=== PATIENT | female | born 1990 | race Caucasian/White ===

== ENCOUNTER 2020-03-23 08:11 | Outpatient (CLI) | payer BC, SELFPAY ==
[2020-03-23 08:54] LABS: Hematocrit 43.8 % (37.0-47.0); Hemoglobin 15.1 g/dL (12.0-15.0); Mean Corpuscular HGB Conc 34.5 g/dl (32-36); Mean Corpuscular Hemoglobin 29.7 pg (26-34); Mean Corpuscular Volume 86.2 fl (80-100); Mean Platelet Volume 9.2 fl (7.4-10.4); Platelet Count Result 224 k/mm3 (150-375); Red Blood Count 5.08 M/mm3 (4.2-5.4); Red Cell Distribution Width 11.9 % (11.5-14.5); White Blood Count 7.2 K/mm3 (4.5-10.0)
[2020-03-23 09:17] LABS: Alanine Aminotransferase 37 U/L (4-35); Albumin Level 4.1 g/dL (3.5-5.1); Alkaline Phosphatase 60 U/L (38-126); Anion Gap 5 mmol/L (8-16); Aspartate Amino Transferase 34 U/L (14-36); Bilirubin,Total 0.4 mg/dL (0.2-1.3); Blood Urea Nitrogen 16 mg/dL (7-17); Carbon Dioxide 31 mmol/L (22-30); Chloride 102 mmol/L (98-107); Cholesterol 219 mg/dL (0-200); Estimated Glomerular Filt Rate > 60; Glucose 96 mg/dL (65-105); HDL Direct 46 mg/dL; Sodium 138 mmol/L (137-145); Triglycerides 181 mg/dL (<150)
[2020-03-23 09:28] LABS: LDL Cholesterol Direct 135 mg/dL
[2020-03-23 10:25] LABS: Free T4 Free Thyroxine 0.74 ng/mL (0.78-2.19)
== END 2020-03-23 08:12 | disposition home or self-care (01) ==
PROVIDERS: PCP Family Medicine; Visit Provider Physician Assistant
DX: Z00.00 Encounter for general adult medical examination without abnormal findings (principal); R53.83 Other fatigue
CPT/HCPCS: 36415; 80053; 80061; 84439; 84443; 85027

== ENCOUNTER 2023-08-06 12:44 | Emergency (ER) | payer OTHER, SELFPAY ==
[2023-08-06 12:48] VITALS: BP 148/95; PULSE 72; RESP 16; TEMP 36.5; O2SAT 98
== END 2023-08-06 15:16 | disposition left against medical advice (07) ==
LOC: ANHED 15:19
PROVIDERS: PCP Family Medicine
DX: N93.9 Abnormal uterine and vaginal bleeding, unspecified (principal); Z53.21 Procedure and treatment not carried out due to patient leaving prior to being seen by health care provider
CPT/HCPCS: 99199

== ENCOUNTER 2023-08-27 16:03 | Outpatient (CLI) | payer OTHER, SELFPAY ==
--- NOTE | ~2023-08-27 | US_ITS ---
EXAMINATION: US pelvic complete w TV DATE: 08/27/2023 INDICATION: Excessive menstrual bleeding. TECHNIQUE: Multiple transabdominal and transvaginal sonographic images of the pelvis were obtained. COMPARISON: CT abdomen and pelvis 10/25/2014 FINDINGS: TRANSABDOMINAL ULTRASOUND: The uterus measures 7.5 x 3.8 x 4.0 cm. There is no free fluid in the pelvis. TRANSVAGINAL ULTRASOUND: The endometrial complex measures 4 mm in thickness. The ovaries are not visualized. IMPRESSION: 1. Normal uterus. Reviewed, dictated and finalized at location E. INSTALLER IMPRESSION: 1. Normal uterus.
== END 2023-08-27 16:04 | disposition home or self-care (01) ==
LOC: ANHIMG 16:09
PROVIDERS: PCP Internal Medicine; Visit Provider Nurse Practitioner
DX: N92.0 Excessive and frequent menstruation with regular cycle (principal)
CPT/HCPCS: 76830; 76856

== ENCOUNTER 2023-09-15 00:52 | Day surgery (SDC) | payer OTHER, SELFPAY ==
[2023-09-02 15:06] VITALS: BMI 47.7
--- NOTE | 2023-09-02 15:07 | PC.NURSE ---
Report to the Outpatient Waiting Room, entrance under the green pavilion located off [facility], at time _0700_ on date _09/15/23__. Planned Procedure Time: _0900_. Time changes happen often and if your time is changed the preop area will call you the afternoon before. - You and your visitor will be asked to self-screen and do not enter if you have any COVID symptoms. - A mask is optional within the hospital at this time. Patients may have clear liquids (water, carbonated beverages, clear teas, apple juice) until 3 hours prior to surgery with a maximum of 20 ounces. - No food from midnight until time of surgery - Infants may have breast milk until 4 hours before surgery, formula 6 hours prior to surgery. - Children will be allowed to drink immediately following surgery. If applicable, please bring a bottle or sippy cup to assist with drinking. Juice, water, soda, and popsicles are readily available. For infants on formula, please bring formula the day of surgery. Pacifiers are allowed. Take the following medications with a SIP of water the morning of surgery: DO NOT STOP ANY OF YOUR OTHER PRESCRIPTION MEDICATIONS PRIOR TO SURGERY ?EXCEPT THE FOLLOWING Medications to discontinue per physician __vitamins or supplements 3 days prior Date to take last dose Please no make-up, nail icelandic, hairspray, perfume, deodorant, or body powder the day of surgery. No jewelry (including any body piercings) or valuables the day of surgery, leave them at home. Please take a shower or bath the night before, or the morning of, surgery with an antibacterial soap. Wear comfortable, loose fitting clothing. Children are encouraged to wear pajamas. - Jewelry must be removed prior to entering the operating room. Rings and piercings that are not removed may be cut off. - The hospital will not accept responsibility for valuables. - Please leave all valuables, including medications, at home the day of surgery. If you are going home after surgery, a licensed wrecking car driver must drive you home. - NO public transportation without another adult if you receive anesthesia. - We recommend that an adult stay with you for 24 hours following discharge. - We also recommend that you do not drive, make important decision, drink alcoholic beverages, or take any drugs that were not prescribed by your health care provider for at least 24 hours after your discharge time. For Pediatric surgeries, we recommend two adults accompany the child home. Follow any additional instructions given to you from your surgeon. If you or anyone in your household have experienced Covid symptoms in the past week, please notify your surgeon or the nurse liaison at the phone number below for possible testing. Telephone instructions given to _patient__and asked if any additional questions and then verbalized understanding. Patient advised to call surgeon office or pre surgery nurse liaison [phone] if any additional questions.
[2023-09-15 06:58] VITALS: BP 136/61; PULSE 53; RESP 20; TEMP 36.7; O2SAT 98
--- NOTE | 2023-09-15 07:26 | WPDHPUPDATE1 ---
History and Physical Update Update Date/Time: 09/15/23 07:26 History and Physical has been reviewed, including an updated exam of the patient. There are NO changes in the patient's condition. Risks, benefits, and alternatives have been discussed and questions answered. Patient agrees to proceed with procedure.
--- NOTE | 2023-09-15 07:26 | PM.HPGS ---
History of Present Illness History of Present Illness Consent: Risks, benefits, and alternatives have been discussed and questions answered. Patient agrees to proceed with procedure. Chief complaint: abn uterine bleeding Narrative: Mel Sandoval is a 33 year old female with a change in her cycle in 08/02. Patient was bleeding through her clothes and passing clots. She went to the emergency room 08/06 but left without being seen. Patient had previously been on oral contraceptives and had not been having cycles. Patient did stop her oral contraceptive just prior to the onset of excessive bleeding. Pelvic ultrasound was normal. It was recommended to undergo D&C hysteroscopy for further evaluation. Risks infection, bleeding, perforation, and possible pathology are discussed. Patient voices understanding and agrees to proceed. Review of Systems Review of Systems: not repeated day of surgery; patient states no changes in status [facility] Past Medical History Medical History (Updated 09/15/23 @ 07:30 by Fariha May MD) Anxiety Arm fracture, left Fixed nonsurgically Asthma Cerebrovascular accident 06/2019 Finger fracture Foot fracture, left Repaired surgically. 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 She lives with her grandmother. Smoking status: Never smoker Second hand tobacco smoke exposure: Yes Alcohol intake: never Substance use: never Substance use type: does not use Lack of Transportation: No Lack of Food: Never True Current Housing: I Have Housing Concerned About Future Housing: No Difficulty Paying Gas/Electric Bills: No Difficulty Paying for Meds: No Currently Unemployed: No Education: Associate Degree Difficulty w/ Childcare or Family Care: No Living arrangements: with family Occupation/Education: occupation Gender identity (if verbalized by the patient): Female Spiritual care concerns: No Agree to blood products: Yes Meds Home Medications and Allergies Home Medications Medication Instructions Recorded Confirmed Type meloxicam 15 mg tablet 15 mg PO DAILY #30 tabs 07/22/23 09/15/23 Rx propranolol 60 mg capsule,24 60 mg PO DAILY #30 caps 07/22/23 09/02/23 Rx hr,extended release magnesium 1 tablet PO DAILY PRN Constipation 09/15/23 09/15/23 History Allergies Allergy/AdvReac Type Severity Reaction Status Date / Time aspirin AdvReac Mild Nausea Verified 09/02/23 14:55 Exam Const: General: obese ( BMI of 49) Orientation/consciousness: patient oriented x3 Resp: Effort & Inspection: normal respiratory effort GI: GI Palp: Yes Soft to palpation, No Tenderness to palpation present (GI) and No Palpable mass present : External Female Exam: normal external appearance Speculum Exam - Vagina: normal appearance of the vagina and normal vaginal discharge Speculum Exam - Cervix: normal appearance of the cervix Bimanual exam- vagina & uterus: uterine size normal and consistency normal Bimanual Exam- Adnexa, other: normal adnexae and No adnexal tenderness Neuro: General: patient oriented x3 Assessment and Plan Assessment and plan (1) Menorrhagia: Code(s): N92.0 - Excessive and frequent menstruation with regular cycle Status: Acute Assessment and Plan: plan to proceed with D&C hysteroscopy
[2023-09-15] MEDS: LACTATED RINGERS 1,000 ML 30 ML IV CONT (07:35)
[2023-09-15] MEDS: ACETAMINOPHEN 500 MG TABLET 1000 MG PO (07:41)
--- NOTE | 2023-09-15 07:45 | WPDANESEPPF ---
Anes - Initial Pre Proc Eval Procedure: Operation Date: 09/15/23 09:00 Proposed Procedures p Hysteroscopy, Dilation and Curettage - Fariha May MD Date/Time: 09/15/23 07:45 Surgeon: Fariha May MD Pre Op Diagnosis: abn uterine bleeding Patient Data Age: 33 Gender: F Height: 1.63 m Weight: 126.2 kg Allergies Allergy/AdvReac Type Severity Reaction Status Date / Time aspirin AdvReac Mild Nausea Verified 09/02/23 14:55 Home Medications Medication Instructions Recorded Confirmed Type meloxicam 15 mg tablet 15 mg PO DAILY #30 tabs 07/22/23 09/15/23 Rx propranolol 60 mg capsule,24 60 mg PO DAILY #30 caps 07/22/23 09/02/23 Rx hr,extended release magnesium 1 tablet PO DAILY PRN Constipation 09/15/23 09/15/23 History Patient hx anesthesia problems: none Family hx anesthesia problems: none Results Review: All pre-operative results and documents have been reviewed as part of the pre-operative evaluation. [facility] Past Medical History Medical History Anxiety Arm fracture, left Fixed nonsurgically Asthma Cerebrovascular accident 06/2019 Finger fracture Foot fracture, left Repaired surgically. History of sinus problem Idiopathic intracranial hypertension Migraine PCOS (polycystic ovarian syndrome) Stenosis of tear duct UTI (urinary tract infection) Surgical History Surgical History H/O adenoidectomy History of placement of ear tubes History of tonsillectomy Family History Family History Grandparent Lung cancer Grandparent Diabetes mellitus Hypertension Mother Hypertension Social History Social History Social History: Patient works selling truck parts. She lives with her grandmother. Smoking status: Never smoker Second hand tobacco smoke exposure: Yes Alcohol intake: never Substance use: never Substance use type: does not use Lack of Transportation: No Lack of Food: Never True Current Housing: I Have Housing Concerned About Future Housing: No Difficulty Paying Gas/Electric Bills: No Difficulty Paying for Meds: No Currently Unemployed: No Education: Associate Degree Difficulty w/ Childcare or Family Care: No Living arrangements: with family Occupation/Education: occupation Gender identity (if verbalized by the patient): Female Spiritual care concerns: No Agree to blood products: Yes Anes - Eval Final PreProcedure Day of Procedure 09/15/23 07:45 Patient weight: morbidly obese Heart: regular rate and rhythm Lungs: clear to auscultation Airway: Mallampati scale class II Neurological: alert and oriented Last oral intake: >/= 8 hours ASA classification: III Emergent: no Anesthetic plan: proceed Anesthesia type and monitoring: general GIVS and standard monitoring Results Review: All pre-operative results and documents have been reviewed as part of the pre-operative evaluation. Informed Consent: The patient's anesthetic plan and its attendant risks and benefits were discussed with the patient/family/POA. Questions were solicited and answers provided to the satisfaction of the patient/family/POA.
--- NOTE | 2023-09-15 09:05 | P.OP_ITS ---
Procedure Note - Detailed Date of Procedure 09/15/23 Pre-op Diagnosis menorrhagia Post-op Diagnosis Same Procedure Performed D&C hysteroscopy Surgeon Fariha May MD Anesthesia MAC Findings uterus sounds to 8cm; posterior wall is thickened; no discrete lesions Description of Procedure The patient is taken to the operating room and placed under anesthesia in the lithotomy position. She was prepped and draped in the usual sterile fashion. [place] speculum was placed in the vagina and the cervix grasped on the anterior lip with a tenaculum. The uterus is sounded to 8cm. The diagnostic hysteroscope was placed and the endometrium appears thickened without lesions. The hysteroscope was removed. The OO sharp curette is used to curette the endometrium until a good uterine cry was noted in all areas. All instruments were then removed. Sponge, needle, and instrument counts are correct per the OR staff. The patient was awakened from anesthesia and taken to recovery in stable condition. Estimated Blood Loss 5 Drains No Packing No Pathology Yes ( endometrial curettings) Complications No immediate complications Condition Stable Disposition PACU
[2023-09-15 09:10] VITALS: BP 156/91; PULSE 75; RESP 16; O2SAT 94
[2023-09-15] MEDS: oxyCODONE HCL (*CRX) 5 MG TAB IR PO (09:31)
[2023-09-15 09:40] VITALS: BP 138/81; PULSE 53; RESP 20
[2023-09-15 09:55] VITALS: BP 138/81; PULSE 47; RESP 20
== END 2023-09-15 10:01 | disposition home or self-care (01) ==
PROVIDERS: PCP Internal Medicine; Visit Provider Obstetrics & Gynecology Gynecology
PROC: 0U5B8ZZ Destruction of Endometrium, Via Natural or Artificial Opening Endoscopic (ICD-10-PCS; CPT 58563; principal; 2023-09-15 09:00)
DX: N92.0 Excessive and frequent menstruation with regular cycle (principal); F41.9 Anxiety disorder, unspecified; J45.909 Unspecified asthma, uncomplicated; E28.2 Polycystic ovarian syndrome; E66.01 Morbid (severe) obesity due to excess calories; Z68.43 Body mass index [BMI] 50.0-59.9, adult; Z98.890 Other specified postprocedural states; Z86.79 Personal history of other diseases of the circulatory system; Z80.1 Family history of malignant neoplasm of trachea, bronchus and lung
CPT/HCPCS: 58558; 88305; A9270; J1100; J1885; J2250; J2405; J2704; J3010; J7120

== ENCOUNTER 2024-04-16 09:00 | Outpatient (RCR) | payer OTHER, SELFPAY ==
--- NOTE | 2024-03-11 15:32 | OPREHPOC ---
Outpatient Therapy Plan of Care This is a Multidisciplinary Plan of Care that may contain components documented by all disciplines (PT, OT, and ST.) PT Problem 1 PT Problem #1 Knowledge Deficit PT Goal 1 Goal 1. Patient will perform independent HEP 2. Patient will verbalize urge suppression strategies Target Visit 3 PT Problem 2 PT Problem #2 Impaired Strength PT Goal 1 Goal 1. Improve pelvic floor strength to 4/5 to decrease incontinence 2. Improve pelvic floor endurance to 10 seconds to decrease incontinence Target Visit 6 PT Problem 3 PT Problem #3 Impaired Functional ADLs PT Goal 1 Goal 1. Patient will report incontinence no more than 1 time per month 2. Patient will do normal activities and void no more than 8 times a day and 1 time at night 3. Patient will be able to hold urge to void at least 30 minutes Target Visit 6
--- NOTE | 2024-03-11 15:32 | PTOPEVAL1 ---
Assessment and note entered by Serena Pittman DPT Evaluation Information Assessment Status Evaluation ICD-10 Condition Codes (PT) Urge incontinence N39.41,Stress incontinence N39.3 Subjective Information Pt reports bladder frequency, urgency and incontinence. States history of incontinence has been since childhood. Voids at least 9 times a day and wakes up 1-2 times a night. Can hold urge to void 7 minutes, will need to run to the bathroom if she holds too long. No pain with urination. Wears a pad at all times as a safety net . Incontinence at least 4 times a day, small volume but more than a few drops. Typically does not have to change clothes. BM 2 times a day, no pain with BM but has had abdominal cramping in the past. Minor cramping with tampon, denies history of other pelvic pain. Pt has never been . Reports no periods since 2019 and tried various types of control with poor outcomes. Sees GI next week. Pt reports she always makes sure to have extra pads with her and knows where a bathroom is when she is in the community. Sometimes avoids fluids due to incontinence. Patient goal: decrease incontinence Returns to MD in May. Reported Pain Level Pain Score 0: Self Report Assessment PT Clinical Summary The patient is presenting to skilled therapy with a chronic history of urinary incontinence, urgency , and frequency. She presents with decreased core strength and decreased pelvic floor strength and endurance which are contributing to her symptoms including daily incontinence and intermittent fluid avoidance. She will benefit from therapy to improve strength in order to reduce incontinence and educate in urge suppression techniques for urgency and frequency. Plan of Care Interventions Manual Therapy,Neuro Re-education,Patient/ Caregiver Education,Therapeutic Activities, Therapeutic Exercise PT Services Indicated Yes Treatment Frequency and 1 time a week for 6 visits Duration These treatments will address the objective and functional deficits as defined above. The patient will be advanced safely and appropriately in order for the patient to progress towards his/her prior level of function. Additional exercises will be introduced and as well as a comprehensive home exercise program upon discharge, if needed, ?to ensure carryover of functional gains achieved in the clinic
--- NOTE | 2024-04-16 09:28 | OPREHPOC ---
Outpatient Therapy Plan of Care This is a Multidisciplinary Plan of Care that may contain components documented by all disciplines (PT, OT, and ST.) PT Problem 1 PT Problem #1 Knowledge Deficit PT Goal 1 Goal / Goal Update 1. Patient will perform independent HEP 2. Patient will verbalize urge suppression strategies Target Visit 3 Progress Met PT Problem 2 PT Problem #2 Impaired Strength PT Goal 1 Goal / Goal Update 1. Improve pelvic floor strength to 4/5 to decrease incontinence 2. Improve pelvic floor endurance to 10 seconds to decrease incontinence Target Visit 6 Progress Met PT Problem 3 PT Problem #3 Impaired Functional ADLs PT Goal 1 Goal / Goal Update 1. Patient will report incontinence no more than 1 time per month 2. Patient will do normal activities and void no more than 8 times a day and 1 time at night 3. Patient will be able to hold urge to void at least 30 minutes Target Visit 6 Progress Met
--- NOTE | 2024-04-16 09:28 | PTOPDC ---
Assessment and note entered by Serena Pittman DPT Evaluation Information Assessment Status Discharge ICD-10 Condition Codes (PT) Urge incontinence N39.41,Stress incontinence N39.3 Subjective Information Denies incontinence in the last week. Feels some urgency still. Urinating 5-6 times a day and has not woken up at night most of the time. Has been able to hold urge to void up to 2 hours. Still wearing pads as a safety net and due to discharge. Reported Pain Level Pain Score 0: Self Report Assessment PT Clinical Summary The patient has made excellent progress in therapy and reports no incontinence in over a week. She reports decreased urinary frequency to a normal range and is able to hold urge to void longer. She also demonstrates improved pelvic floor strength and endurance and improved core strength. Due to her progress, discharge is recommended at this time. She has been educated to continue HEP and follow up with MD and/or PT as needed. Plan of Care PT Services Indicated No
== END 2024-04-16 11:53 | disposition home or self-care (01) ==
LOC: ANHPT 09:00
PROVIDERS: PCP Family Medicine
DX: R35.0 Frequency of micturition (principal); N39.498 Other specified urinary incontinence
CPT/HCPCS: 97110; 97112; 97161; 97530